=== PATIENT | female | born 1965 | race Caucasian/White ===

== ENCOUNTER 2017-04-18 01:51 | Emergency (ER) | payer OTHER ==
[~2017-04-18] VITALS: Ht 180.3 cm; Wt 98.0 kg
[~2017-04-18 01:51] MED LIST: BIOTIN2500 MCG; FLEXERIL PO; HYDROCODON-ACE1 EAC5 PO; HYDROCODONE-AP1 EAC6 PO; IBUPROFEN 800800 M1 PO; IRON236 MG; LEVAQUIN 500 M500 M2 PO; MAGOX 400400 MG PO; MIRALAX255 GM PO; NIACIN50 MG PO; PERCOCET 5-3251 EACH PO; PRENATAL COMPL1 EACH; STOOL SOFT-STI1 EACH PO; VICODIN HP 10-1 EAC1 PO; VITAMIN B 12
[2017-04-18] MEDS ORDERED: AMRIX15 MG PO (02:11)
[2017-04-18] MEDS ORDERED: FLEXERIL PO (02:11)
[2017-04-18 03:37] VITALS: BP 111/70
== END 2017-04-18 03:37 | disposition home or self-care (01) ==
LOC: M.ERS 01:51
DX: S01.111A Laceration without foreign body of right eyelid and periocular area, initial encounter (principal); J45.909 Unspecified asthma, uncomplicated; G43.909 Migraine, unspecified, not intractable, without status migrainosus; Z90.89 Acquired absence of other organs; Z90.49 Acquired absence of other specified parts of digestive tract; Z88.5 Allergy status to narcotic agent; W18.2XXA Fall in (into) shower or empty bathtub, initial encounter; Y93.89 Activity, other specified; Y92.89 Other specified places as the place of occurrence of the external cause; Y99.8 Other external cause status